=== PATIENT | female | born 1960 | race Caucasian/White ===

== ENCOUNTER 2016-12-16 07:31 | Inpatient (IN) ==
[2016-12-16 07:56] LABS: Basophils % 0.2 %; Eosinophils # 0.1 K/mcL (0.0-0.6); Hematocrit 38.7 % (35.3-44.9); Hemoglobin 12.8 g/dL (11.5-15.4); Immature Granulocytes % 0.2 % (0-4); Lymphocytes # 2.9 K/mcL (0.6-4.6); Lymphocytes % 23.2 %; Mean Corpuscular HGB Conc 33.1 g/dL (31.6-35.5); Mean Corpuscular Hemoglobin 30.4 pg (28.0-33.3); Mean Corpuscular Volume 91.9 fL (83.0-100.0); Mean Platelet Volume 10.6 fL (9.4-12.4); Monocytes # 0.4 K/mcL (0.0-1.3); Platelet Count 158 K/mcL (140-400); Red Blood Count 4.21 M/mcL (3.82-4.97); Red Cell Distribution Width 15.1 % (11.5-14.5); Segmented Neutrophils % 72.4 %
[2016-12-16 08:11] LABS: Alanine Aminotransferase 27 Units/L (0-55); Albumin 3.3 g/dL (3.5-5.0); Alkaline Phosphatase 110 Units/L (38-126); Aspartate Amino Transferase 33 Units/L (5-34); BUN/Creatinine Ratio 13 (6-26); Bilirubin,Total 0.5 mg/dL (0.2-1.2); Blood Urea Nitrogen 11 mg/dL (7-20); Calcium 9.2 mg/dL (8.6-10.8); Carbon Dioxide 24 mEq/L (19-29); Chloride 108 mEq/L (98-109); Glucose 125 mg/dL (70-99); Osmolality,Calculated 293 (280-300); Potassium 3.2 mEq/L (3.5-4.5); Sodium 141 mEq/L (136-145); Total Protein 7.7 g/dL (6.0-8.3); eGFR For African Americans > 60 (> 60); eGFR For Non-African Americans > 60 (> 60)
[2016-12-16 08:12] LABS: Albumin/Globulin Ratio 0.8 (1.1-2.2); Globulin 4.4 g/dL (2.4-3.5)
[2016-12-16 08:12] LABS: Bilirubin,Urine Negative (Negative); Blood,Urine Negative (Negative); Clarity,Urine Cloudy (Clear); Color,Urine Yellow (Yellow); Glucose,Urine (UA) Normal (Normal); Ketones,Urine Negative (Negative); Leukocyte Esterase,Urine Small (Negative); Nitrite,Urine Positive (Negative); Protein,Urine Negative (Neg-Trace); Specific Gravity,Urine 1.018 (1.010-1.025); Urobilinogen,Urine Normal (Normal)
[2016-12-16 08:14] LABS: Bacteria,Urine Many per hpf (None-Few); Hyaline Casts,Urine None Seen per lpf (None-Few); RBC,Urine 0-3 per hpf (0-3); Squamous Epithelial Cell,Urine Moderate per lpf (None-Few)
[2016-12-16 08:23] LABS: Amphetamine Screen,Urine Negative ng/mL (Cutoff=1000); Barbiturate Screen,Urine Negative ng/mL (Cutoff=200); Benzodiazepines Screen,Urine Negative ng/mL (Cutoff=200); Cannabinoid Screen,Urine Negative ng/mL (Cutoff = 50); Cocaine Screen,Urine Positive ng/mL (Cutoff= 300); Opiate Screen,Urine Negative ng/mL (Cutoff=300); Phencyclidine Screen,Urine Negative ng/mL (Cutoff=25)
[2016-12-16] MEDS ORDERED: Azithromycin 500 MG in D5% in Water 250 ML IVPB ONE (10:49)
[2016-12-16] MEDS ORDERED: hydrOXYzine pamoate 25 MG CAPSULE PO PRN (13:58)
[2016-12-16] MEDS ORDERED: Naloxone 0.4 MG/ML INJ IVP PRN (14:02)
[2016-12-16] MEDS ORDERED: Acetaminophen 325 MG TABLET PO PRN (14:02)
--- NOTE | 2016-12-16 14:23 | Internal Med History&Physical ---
Date of Encounter: 12/16/16 Time of Encounter: 14:14 Assessment and Plan (1) Near syncope Current visit: Yes Status: Acute Patient reports a near syncopal event which began this morning. Reporting that she felt dizzy, had blurred vision, and began to blackout, but her sister was there to help her to the floor. Plan is continue to workup and monitor for neurogenic versus cardiogenic syncope. Continuous telemetry Continuous SPO2 monitoring Every 4 hours vital signs Orthostatic vital signs Place patient on fall risk status Up with assist only Trend troponins to rule out cardiogenic cause Neuro check every shift Falls risk precautions Up with assist only CT of head was negative; we will continue to monitor for neurologic changes Blood cultures sent in the emergency department. CBC and BMP in the a.m. (2) Pneumonia Current visit: Yes Status: Acute CTA of chest reveals nodular ground glass infiltrates likely due to infection. The pneumonia may be contributory to the near syncopal event. Continuous SPO2 monitoring Continue his telemetry Oxygen therapy 2 L nasal cannula titrate as needed to maintain SPO2 greater than 92% Continue azithromycin. Patient has already received 500 mg dose today. We will continue azithromycin in the morning with 250 mg daily. De-escalate antibiotic therapy is appropriate. Qualifiers: Pneumonia type: due to unspecified organism Laterality: bilateral Lung location: lower lobe of lung Qualified Code(s): J18.9 - Pneumonia, unspecified organism (3) UTI (urinary tract infection) Current visit: Yes Status: Acute Acute urinary tract infection. Patient had a UA positive for nitrates and small amount of leukocytes. Plan is continue Rocephin 1 g every 24 hours. She is very received 1 g today in the emergency department will continue with Rocephin in the morning. Urine cultures are sent in the emergency department. Qualifiers: Urinary tract infection type: site unspecified Hematuria presence: without hematuria Qualified Code(s): N39.0 - Urinary tract infection, site not specified (4) Hypokalemia Current visit: Yes Status: Acute Hypokalemia noted on metabolic panel with a potassium of 3.2. Plan is to replace potassium with 40 mEq potassium chloride 1 dose. We will check BMP in the morning (5) DVT prophylaxis Current visit: Yes Status: Acute Patient is a risk for DVT due to hospital stay and prolonged immobility. We will place her on Lovenox 40 mg subcutaneous daily. Internal Medicine - H&P: HPI Chief complaint: near syncope Admitted From: Home Plans for Post Hospital Care: Home History of present illness: Ms. 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 She is presenting to [facility] with a near syncopal episode this morning. All information obtained from chart review and patient report. She reports as recently as last week to having a similar near syncopal event but the dizziness did not last as long and the vision changes were not as bad as this morning. Patient reports that as of this morning she was feeling dizzy, and while attempting to get dressed she felt worse, having dizziness, vision changes and almost blacking out. She then walked out into the living area to her sister who then helped her down to the floor d/t her symptoms. The dizziness and vision are reported as ongoing and intermittent, aggravating factors include activity, and focusing on distant objects; gets temporary relief when closing her eyes. She denies taking any new medications, supplements, or herbals. She denies fever, rashes, fatigued, chest pain, shortness of breath, palpitations, nausea, vomiting. She admits to having diarrhea 48 hours ago for 1 day total additionally she admits to dizziness, vision changes, and a headache shortly after syncopal event which has now subsided. While in the emergency department a CT of the head was obtained revealing no acute intracranial abnormalities; however, did show chronic small vessel ischemic changes. CTA of the chest revealed no PE, however, did reveal nodular groundglass infiltrates which is likely infection. Urine drug screen was positive for cocaine and urinalysis was positive for nitrites and small amount of leuks. CBC revealed an elevated WBC of 12.4 and metabolic panel revealed hypokalemia at 3.2. The pneumonia revealed via CTA and cocaine in the UDS could likely be contributory to the near syncopal event. She is being admitted to [facility] for further workup and evaluation. Past Med Surg Social Fam HX - Past Medical History Medical history: arthritis, asthma Psychiatric history: anxiety, depression, panic disorder, prior suicide attempt - Past Surgical History Surgical History: , cholecystectomy, knee replacement, orthopedic, other - Social History Smoking Status: Current every day smoker Packs per day: 1/2 Smokeless Tobacco Status: No Alcohol use: none Drug use: cocaine - Family History Father Race: Family Member Ethnicity: Non- Living Status: Cause of : [place] Hx Family Cardiac Disorders: Yes Mother Race: Family Member Ethnicity: Non- Living Status: Cause of : unknown Hx Family Cardiac Disorders: Yes Hx Family Cancer: Yes Brother Race: Family Member Ethnicity: Non- Hx Family Cardiac Disorders: Yes (CAD) Hx Family Endocrine Disorder: Yes (DM II) Internal Medicine - H&P: Meds Albuterol Sulfate [Ventolin Hfa] 2 puff IH Q4H PRN 12/16/16 [History] Citalopram Hydrobromide [Celexa] 40 mg PO DAILY 12/16/16 [History] Gabapentin [Neurontin] 300 mg PO TID 12/16/16 [History] Multivit-Min/FA/Lycopen/Lutein [A Thru Z Select Multivit Tab] 1 tab PO DAILY 08/27 [History] OxyCODONE/APAP 7.5/325 [Percocet 7.5/325 MG] 1 tab PO Q8HR PRN 12/16/16 [History ] hydrOXYzine HCl [Hydroxyzine HCl] 50 mg PO Q8H PRN 12/16/16 [History] 3 Allergy/AdvReac Type Severity Reaction Status Date / Time aspirin Allergy Rash Verified 03/30/15 18:54 latex Allergy Rash Verified 03/30/15 18:54 All Systems PM: A 10-system review of systems was performed and is negative for pertinent findings except as documented above in the HPI. - Constitutional Constitutional: no chills, no fever(s), no night sweats - EENT Eyes: blurry vision, change in vision (Admits to new blurred vision which began this morning and is ongoing), no discharge, no loss of peripheral vision, no loss of vision, no pain, no photophobia Ears: no ear discharge, no ear pain, no tinnitus Nose, mouth and throat: no dysphagia, no nasal discharge, no neck pain, no sore throat - Cardiovascular Cardiovascular ROS IM: no chest pain, no diaphoresis, no dyspnea, no edema, no lightheadedness, no palpitations, no syncope - Respiratory Respiratory: no cough, no dyspnea, no wheezing, no excessive phlegm production - Gastrointestinal Gastrointestinal: no abdominal pain, no diarrhea, no hematemesis, no hematochezia, no melena, no nausea, no vomiting - Genitourinary Genitourinary: no change in urinary stream, no dysuria, no flank pain, no hematuria - Musculoskeletal Musculoskeletal ROS IM: numbness, tingling (Chronic numbness and tingling bilateral hands; reports carpal tunnel) - Integumentary Integumentary IM: no rash, no unusual bruising - Neurological Neurological ROS: dizziness, headache(s) (Admits to headache which began this morning shortly after near syncopal event, however, reports that she no longer has), no abnormal gait, no confusion, no convulsions, no focal weakness, no frequent falls, no lack of coordination, no memory loss, no numbness, no tremor( s) - Hematologic/Lymphatic Hematologic/Lymphatic: no easy bruising - Constitutional Vitals: Temp Pulse Resp BP Pulse Ox 98.8 F 86 18 109/54 93 12/16/16 13:13 12/16/16 13:13 12/16/16 13:13 12/16/16 13:13 12/16/16 13:13 General appearance: Present: cooperative, A&O X 3, no acute distress - Head Head exam: Present: atraumatic, normocephalic - Eye Eye exam: Present: EOMI, PERRL, conjuntiva pink, sclera anicteric Pupils: Present: PERRL - Neck Neck exam general surgery: Present: supple, trachea midline. Absent: lymphadenopathy - Respiratory Respiratory exam: Present: CTAB. Absent: accessory muscle use, rales, rhonchi, wheezes - Cardiovascular Cardiovascular exam: Present: RRR, +S1, +S2. Absent: bradycardia, diastolic murmur, gallop, irregular rhythm, rubs, systolic murmur, tachycardia - GI/Abdominal GI/Abdominal exam: Present: normal bowel sounds, soft, no peritoneal signs. Absent: bruit, distended, tenderness - Extremities Exam Extremities exam: Present: warm, radial pulses palpable and symmetrical. Absent : calf tenderness, cyanotic, pedal edema - Expanded Upper Extremities Exam Shoulder exam: Absent: full ROM, swelling, tenderness Upper Arm exam: Absent: full ROM, swelling, tenderness (Patient is a decrease in ROM of right shoulder and arm. She notes that this is chronic and has been ongoing for the last year and a half. She had a prior infection in the right shoulder joint and right arm requiring prolonged antibiotic therapy and I&D. She informed this provider that she has had these limitations with her right arm and right shoulder since then.) - Neurological Exam Neurological exam: Present: CN II-XII intact, oriented X3, no focal deficits. Absent: pronater drift, facial droop, speech deficit - Skin Skin exam: Present: dry, intact Internal Med - H&P Results - Labs CBC & Chem 7: 12/16/16 07:49 12/16/16 07:49 - Diagnostic Studies CT scan - head Additional comments: Negative for acute intracranial abnormalities; however, did reveal chronic small vessel ischemic changes Chest x-ray Additional comments: Negative for PE. However, revealed nodular ground glass infiltrates likely due to infection
[2016-12-16] MEDS: Gabapentin 300 MG CAPSULE PO SCH ×2 (14:50→19:53)
[2016-12-16] MEDS ORDERED: Azithromycin 250 MG in D5% in Water 250 ML IVPB SCH (15:00)
--- NOTE | 2016-12-16 19:00 | Emergency Department Note ---
Disposition Clinical Impression: Pneumonia Qualifiers: Pneumonia type: due to unspecified organism Laterality: bilateral Lung location : lower lobe of lung Qualified Code(s): J18.9 - Pneumonia, unspecified organism Disposition: Admitted As Inpatient General Adult HPI - General Chief complaint: ED Dizziness Stated complaint: Dizzy/Near Syncope Time Seen by Provider: 12/16/16 07:35 Source: patient, EMS Limitations: no limitations Nursing Notes Reviewed: Yes Vital Signs Reviewed: Yes - History of Present Illness HPI Narrative: 48-year-old female who presents with concern for dizziness as well as syncope. She admits to passing out today after feeling quite fine when she woke up. She has no fever or chills. She has no sick or ill contacts. She has no weakness before or after syncope. Pain Scale: 0 - Related Data Home Medications Medication Instructions Recorded Confirmed Albuterol Sulfate [Ventolin Hfa] 2 puff IH Q4H PRN 12/16/16 12/16/16 Citalopram Hydrobromide [Celexa] 40 mg PO DAILY 12/16/16 12/16/16 Gabapentin [Neurontin] 300 mg PO TID 12/16/16 12/16/16 Multivit-Min/FA/Lycopen/Lutein [A 1 tab PO DAILY 12/16/16 12/16/16 Thru Z Select Multivit Tab] OxyCODONE/APAP 7.5/325 [Percocet 1 tab PO Q8HR PRN 12/16/16 12/16/16 7.5/325 MG] hydrOXYzine HCl [Hydroxyzine HCl] 50 mg PO Q8H PRN 12/16/16 12/16/16 Allergies Allergy/AdvReac Type Severity Reaction Status Date / Time aspirin Allergy Rash Verified 03/30/15 18:54 latex Allergy Rash Verified 03/30/15 18:54 All systems ED: reviewed and negative except as stated. Past Medical History - Past Medical History Medical history: Reports: arthritis, asthma Surgical history: Reports: , cholecystectomy, knee replacement, orthopedic, other Psychiatric history: Reports: anxiety, depression, panic disorder, prior suicide attempt - Social History Smoking Status: Current every day smoker Smokeless Tobacco Status: No Alcohol use: Reports: none Drug use: Reports: cocaine Physical Exam - General Limitations: no limitations General appearance: alert, in no apparent distress - Head Head exam: atraumatic - Eye Eye exam: Present: normal appearance - ENT ENT exam: normal exam, normal oropharynx - Neck Neck exam: Present: normal inspection, full ROM - Chest Chest inspection: Present: normal inspection - Respiratory Respiratory exam: Present: normal lung sounds bilaterally - Cardiovascular Cardiovascular exam: Present: regular rate, normal rhythm - Expanded Lower Extremity Exam Hip/Pelvis exam: Present: normal inspection Knee exam: Present: normal inspection, full ROM Lower leg exam: Present: normal inspection, full ROM Ankle exam: Present: normal inspection, full ROM Foot/toe exam: Present: normal inspection, full ROM Neurovascular/Tendon exam: Present: normal capillary refill. Absent: pulse deficit Gait: observed and normal, not tested/not observed - Back Exam Back exam: Present: normal inspection, full ROM - Neurological Exam Neurological exam: Present: alert, oriented X3, CN II-XII intact Course Vital Signs Temperature 98 F 12/16/16 07:33 Pulse Rate 80 12/16/16 07:33 Respiratory Rate 20 12/16/16 07:33 Blood Pressure 121/52 12/16/16 07:33 O2 Sat by Pulse Oximetry 96 12/16/16 07:33 Temperature 98.6 F 12/16/16 15:30 Pulse Rate 86 12/16/16 15:30 Respiratory Rate 15 12/16/16 15:30 Blood Pressure 113/67 12/16/16 15:30 O2 Sat by Pulse Oximetry 95 12/16/16 16:51 Oxygen Delivery Oxygen Delivery Room Air Medical Decision Making - [facility] Narrative Medical decision making narrative: 56-year-old female with findings of syncope, urinary tract infection, pneumonia. Also has evidence of cocaine positive urine. We will admit for evaluation of microvascular changes as well as pneumonia as well as urinary tract infection. Ceftriaxone and azithromycin initiated. - Medical Records Medical records reviewed: Yes I reviewed the patient's medical records. - Lab Data Lab results reviewed: Yes I reviewed the patient's lab results. Result diagrams: 12/16/16 07:49 12/16/16 07:49 Lab Results 12/16/16 12/16/16 12/16/16 Range/Units 07:49 07:49 07:49 WBC 12.4 H (4.3-11.1) K/mcL RBC 4.21 (3.82-4.97) M/mcL Hgb 12.8 (11.5-15.4) g/dL Hct 38.7 (35.3-44.9) % MCV 91.9 (83.0-100.0) fL MCH 30.4 (28.0-33.3) pg MCHC 33.1 (31.6-35.5) g/dL RDW 15.1 H (11.5-14.5) % Plt Count 158 (140-400) K/mcL MPV 10.6 (9.4-12.4) fL Immature Gran % 0.2 (0-4) % Seg Neutrophils % 72.4 % Lymphocytes % 23.2 % Monocytes % 3.0 % Eosinophils % 1.0 % Basophils % 0.2 % Neutrophils # 9.0 H (1.6-8.9) K/mcL Lymphocytes # 2.9 (0.6-4.6) K/mcL Monocytes # 0.4 (0.0-1.3) K/mcL Eosinophils # 0.1 (0.0-0.6) K/mcL Basophils # 0.0 (0.0-0.2) K/mcL Sodium 141 (136-145) mEq/L Potassium 3.2 L (3.5-4.5) mEq/L Chloride 108 (98-109) mEq/L Carbon Dioxide 24 (19-29) mEq/L BUN 11 (7-20) mg/dL Creatinine 0.87 (0.57-1.11) mg/dL Est GFR ( Amer) > 60 (> 60) Est GFR (Non-Af Amer) > 60 (> 60) BUN/Creatinine Ratio 13 (6-26) Glucose 125 H (70-99) mg/dL Calculated Osmolality 293 (280-300) Calcium 9.2 (8.6-10.8) mg/dL Total Bilirubin 0.5 (0.2-1.2) mg/dL AST 33 (5-34) Units/L ALT 27 (0-55) Units/L Alkaline Phosphatase 110 (38-126) Units/L Troponin I 0.01 (0-0.03) ng/mL Serum Total Protein 7.7 (6.0-8.3) g/dL Albumin 3.3 L (3.5-5.0) g/dL Globulin 4.4 H (2.4-3.5) g/dL Albumin/Globulin Ratio 0.8 L (1.1-2.2) Urine Color (Yellow) Urine Clarity (Clear) Urine pH (5.0-8.0) pH Units Ur Specific [place] (1.010-1.025) Urine Protein (Neg-Trace) mg/dL Urine Glucose (UA) (Normal) mg/dL Urine Ketones (Negative) mg/dL Urine Blood (Negative) Urine Nitrite (Negative) Urine Bilirubin (Negative) Urine Urobilinogen (Normal) mg/dL Ur Leukocyte Esterase (Negative) Urine Microscopic RBC (0-3) per hpf Urine Microscopic WBC (0-3) per hpf Ur Squamous Epith Cells (None-Few) per lpf Urine Bacteria (None-Few) per hpf Hyaline Casts (None-Few) per lpf Ur Culture Indicated? (NO) Urine Opiates Screen (Xuzapj=424) ng/mL Ur Barbiturates Screen (Zxfajr=995) ng/mL Ur Phencyclidine Scrn (Cutoff=25) ng/mL Ur Amphetamines Screen (Ecqxev=9459) ng/mL U Benzodiazepines Scrn (Jjayjq=795) ng/mL Urine Cocaine Screen (Cutoff= 300) ng/mL U Marijuana (THC) Screen (Cutoff = 50) ng/mL 12/16/16 12/16/16 Range/Units 08:00 08:00 WBC (4.3-11.1) K/mcL RBC (3.82-4.97) M/mcL Hgb (11.5-15.4) g/dL Hct (35.3-44.9) % MCV (83.0-100.0) fL MCH (28.0-33.3) pg MCHC (31.6-35.5) g/dL RDW (11.5-14.5) % Plt Count (140-400) K/mcL MPV (9.4-12.4) fL Immature Gran % (0-4) % Seg Neutrophils % % Lymphocytes % % Monocytes % % Eosinophils % % Basophils % % Neutrophils # (1.6-8.9) K/mcL Lymphocytes # (0.6-4.6) K/mcL Monocytes # (0.0-1.3) K/mcL Eosinophils # (0.0-0.6) K/mcL Basophils # (0.0-0.2) K/mcL Sodium (136-145) mEq/L Potassium (3.5-4.5) mEq/L Chloride (98-109) mEq/L Carbon Dioxide (19-29) mEq/L BUN (7-20) mg/dL Creatinine (0.57-1.11) mg/dL Est GFR ( Amer) (> 60) Est GFR (Non-Af Amer) (> 60) BUN/Creatinine Ratio (6-26) Glucose (70-99) mg/dL Calculated Osmolality (280-300) Calcium (8.6-10.8) mg/dL Total Bilirubin (0.2-1.2) mg/dL AST (5-34) Units/L ALT (0-55) Units/L Alkaline Phosphatase (38-126) Units/L Troponin I (0-0.03) ng/mL Serum Total Protein (6.0-8.3) g/dL Albumin (3.5-5.0) g/dL Globulin (2.4-3.5) g/dL Albumin/Globulin Ratio (1.1-2.2) Urine Color Yellow (Yellow) Urine Clarity Cloudy A (Clear) Urine pH 6.0 (5.0-8.0) pH Units Ur Specific [place] 1.018 (1.010-1.025) Urine Protein Negative (Neg-Trace) mg/dL Urine Glucose (UA) Normal (Normal) mg/dL Urine Ketones Negative (Negative) mg/dL Urine Blood Negative (Negative) Urine Nitrite Positive A (Negative) Urine Bilirubin Negative (Negative) Urine Urobilinogen Normal (Normal) mg/dL Ur Leukocyte Esterase Small H (Negative) Urine Microscopic RBC 0-3 (0-3) per hpf Urine Microscopic WBC 5-15 H (0-3) per hpf Ur Squamous Epith Cells Moderate H (None-Few) per lpf Urine Bacteria Many H (None-Few) per hpf Hyaline Casts None Seen (None-Few) per lpf Ur Culture Indicated? YES A (NO) Urine Opiates Screen Negative (Gkuwwz=811) ng/mL Ur Barbiturates Screen Negative (Maqzuw=907) ng/mL Ur Phencyclidine Scrn Negative (Cutoff=25) ng/mL Ur Amphetamines Screen Negative (Imewze=1049) ng/mL U Benzodiazepines Scrn Negative (Pgglwy=281) ng/mL Urine Cocaine Screen Positive H (Cutoff= 300) ng/mL U Marijuana (THC) Screen Negative (Cutoff = 50) ng/mL
[2016-12-17] MEDS: *HR* Enoxaparin 40 MG/0.4 ML SYRINGE SQ SCH (05:17)
[2016-12-17 06:03] LABS: Basophils % 0.3 %; Eosinophils # 0.2 K/mcL (0.0-0.6); Eosinophils % 1.2 %; Hematocrit 32.8 % (35.3-44.9); Immature Granulocytes % 0.3 % (0-4); Lymphocytes # 3.3 K/mcL (0.6-4.6); Lymphocytes % 22.9 %; Mean Corpuscular HGB Conc 33.2 g/dL (31.6-35.5); Mean Corpuscular Hemoglobin 29.8 pg (28.0-33.3); Mean Corpuscular Volume 89.6 fL (83.0-100.0); Mean Platelet Volume 11.1 fL (9.4-12.4); Monocytes # 0.7 K/mcL (0.0-1.3); Monocytes % 4.7 %; Neutrophils # 10.3 K/mcL (1.6-8.9); Platelet Count 155 K/mcL (140-400); Red Blood Count 3.66 M/mcL (3.82-4.97); Red Cell Distribution Width 15.2 % (11.5-14.5); Segmented Neutrophils % 70.6 %
[2016-12-17 06:05] LABS: Hemoglobin 10.9 g/dL (11.5-15.4)
[2016-12-17 06:17] LABS: BUN/Creatinine Ratio 18 (6-26); Blood Urea Nitrogen 13 mg/dL (7-20); Carbon Dioxide 24 mEq/L (19-29); Chloride 109 mEq/L (98-109); Glucose 99 mg/dL (70-99); Osmolality,Calculated 286 (280-300); Potassium 3.8 mEq/L (3.5-4.5); Sodium 138 mEq/L (136-145); eGFR For African Americans > 60 (> 60); eGFR For Non-African Americans > 60 (> 60)
[2016-12-17] MEDS: Multivit/Ca/Min/Fe/FA 1 TAB TABLET PO SCH (08:50)
[2016-12-17] MEDS: Gabapentin 300 MG CAPSULE PO SCH ×3 (08:50→20:13)
[2016-12-17] MEDS ORDERED: Azithromycin 250 MG in D5% in Water 250 ML IVPB SCH (11:30)
--- NOTE | 2016-12-17 14:23 | Internal Med Progress Note ---
Date of Encounter: 12/17/16 Time of Encounter: 10:00 - Assessment and plan (1) Near syncope Current Visit: Yes Status: Acute Assessment and plan: Likely multi-factorial. Imaging consistent with bilateral lower lobe pneumonia and she also has a urinary tract infection. Treating with azithromycin and ceftriaxone. She is tolerating a regular diet. Vital signs are stable. (2) Pneumonia Current Visit: Yes Status: Acute Assessment and plan: Imaging consistent with bilateral lower lobe pneumonia. On examination, patient denies shortness of breath and is tolerating room air. Unclear causation. No recent admissions. Treating with azithromycin and ceftriaxone. Vital signs are stable. ITS Impressions Chest CTA 12/16/16 07:36 IMPRESSION: 1. No pulmonary embolism. 2. Nodular ground-glass infiltrates within the bilateral lower lobes, most likely infectious or inflammatory in etiology. Follow-up chest CT in 3- 6 months is recommended to document resolution. D/ / Michele García MD / Michele García MD Interpreting Provider: Michele García MD (3) UTI (urinary tract infection) Current Visit: Yes Status: Acute Assessment and plan: Initial urine culture consistent with gram-negative rods. Good coverage with ceftriaxone. Awaiting sensitivities. Patient denies dysuria but does complain of diffuse generalized abdominal pain. Qualifiers: Urinary tract infection type: site unspecified Hematuria presence: without hematuria Qualified Code(s): N39.0 - Urinary tract infection, site not specified (4) Abdominal pain Current Visit: No Status: Acute Assessment and plan: On examination, patient's abdomen is distended but soft and diffusely tender. Patient stating she is very gassy. She states she had a normal bowel movement last night. Tolerating a regular diet. LFTs unremarkable. We will continue to trend. If pain persists, will consider abdominal imaging but not indicated at this time. (5) Anemia Current Visit: No Status: Chronic Assessment and plan: Currently at the high end of her normal. We will continue to trend. Initial readings normal suggestive of hemoconcentration upon arrival. No signs of active bleeding. (6) Hypokalemia Current Visit: Yes Status: Resolved (7) Cocaine abuse Current Visit: Yes Status: Chronic Assessment and plan: Tox screen positive for cocaine. Patient stating she has been using cocaine for several years. She is not interested in resources or in stopping. (8) DVT prophylaxis Current Visit: Yes Status: Acute Assessment and plan: Subcutaneous Lovenox - Subjective Interval history: Patient seen and examined. On examination, patient initially asleep and awakened easily to voice. She states she was able to eat her breakfast. She denies pain or shortness of breath at this time. - Constitutional Vitals: Temp Pulse Resp BP Pulse Ox 98.0 F 67 16 126/73 96 12/17/16 10:45 12/17/16 10:45 12/17/16 10:45 12/17/16 10:45 12/17/16 10:45 General appearance: Present: cooperative, A&O X 3, pleasant, no acute distress, answers questions appropriately - Head Head exam: Present: atraumatic, normocephalic - Eye Eye exam: Present: PERRL, conjuntiva pink, sclera anicteric Pupils: Present: PERRL - Neck Neck exam general surgery: Present: supple, trachea midline. Absent: lymphadenopathy - Respiratory Respiratory exam: Present: decreased breath sounds. Absent: accessory muscle use, rales, respiratory distress, rhonchi, wheezes - Cardiovascular Cardiovascular exam: Present: RRR, +S1, +S2. Absent: diastolic murmur, gallop, rubs, systolic murmur - GI/Abdominal GI/Abdominal exam: Present: distended, normal bowel sounds, soft, tenderness ( Diffuse), no peritoneal signs - Extremities Exam Extremities exam: Present: warm, radial pulses palpable and symmetrical. Absent : calf tenderness, cyanotic, pedal edema - Neurological Exam Neurological exam: Present: alert, CN II-XII intact, oriented X3, no focal deficits, strengths equal and symetr throughout. Absent: pronater drift, facial droop, speech deficit - Skin Skin exam: Present: dry, intact, pallor, warm Internal Medicine: Result - Labs CBC & Chem 7: 12/17/16 04:52 12/17/16 04:52 Labs: Short CBC 12/17/16 Range/Units 04:52 WBC 14.6 H (4.3-11.1) K/mcL Hgb 10.9 L D (11.5-15.4) g/dL Hct 32.8 L (35.3-44.9) % Plt Count 155 (140-400) K/mcL Neutrophils # 10.3 H (1.6-8.9) K/mcL BMP 12/17/16 04:52 Sodium 138 Potassium 3.8 Chloride 109 Carbon Dioxide 24 BUN 13 Creatinine 0.74 Glucose 99 Calcium 9.0 Cardiac Enzymes 12/16/16 12/16/16 Range/Units 14:24 19:18 Troponin I 0.00 0.02 (0-0.03) ng/mL Consult Discharge Plan - Plan Referrals: Chinmay Eastman MD [Primary Care Provider] -
[2016-12-17] MEDS ORDERED: *HR* OxyCODONE/APAP 7.5/325 TABLET PO PRN (14:28)
--- NOTE | 2016-12-17 15:01 | Electrocardiograph Report ---
[place] [id number] Test Date: 2016-12-16 Pat Name: Kristen Benitez Department: 113 Room: 3B12 Gender: F Biomedical Specialist: : [id number] Requested By: Glenn Garza Order Number: [id number] Reading MD: Tiffanie Gomez Measurements Intervals [place] Rate: 77 P: 24 [place]: 147 QRS: 40 QRSD: 82 T: 39 QT: 450 QTc: 481 Interpretive Statements SINUS RHYTHM PROLONGED QT INTERVAL Electronically Signed On 12-17-2016 14:59:32 EDT by Tiffanie Gomez
[2016-12-18 05:02] LABS: Basophils % 0.4 %; Eosinophils # 0.3 K/mcL (0.0-0.6); Eosinophils % 2.8 %; Hematocrit 36.3 % (35.3-44.9); Hemoglobin 11.9 g/dL (11.5-15.4); Immature Granulocytes % 0.3 % (0-4); Lymphocytes # 3.3 K/mcL (0.6-4.6); Lymphocytes % 35.4 %; Mean Corpuscular HGB Conc 32.8 g/dL (31.6-35.5); Mean Corpuscular Hemoglobin 29.9 pg (28.0-33.3); Mean Corpuscular Volume 91.2 fL (83.0-100.0); Mean Platelet Volume 11.8 fL (9.4-12.4); Monocytes # 0.6 K/mcL (0.0-1.3); Monocytes % 6.8 %; Platelet Count 157 K/mcL (140-400); Red Blood Count 3.98 M/mcL (3.82-4.97); Red Cell Distribution Width 15.4 % (11.5-14.5); Segmented Neutrophils % 54.3 %
[2016-12-18 05:15] LABS: BUN/Creatinine Ratio 15 (6-26); Blood Urea Nitrogen 11 mg/dL (7-20); Calcium 9.4 mg/dL (8.6-10.8); Carbon Dioxide 23 mEq/L (19-29); Chloride 106 mEq/L (98-109); Glucose 90 mg/dL (70-99); Osmolality,Calculated 285 (280-300); Potassium 4.3 mEq/L (3.5-4.5); Sodium 138 mEq/L (136-145); eGFR For African Americans > 60 (> 60); eGFR For Non-African Americans > 60 (> 60)
[2016-12-18] MEDS: *HR* Enoxaparin 40 MG/0.4 ML SYRINGE SQ SCH (05:35)
[2016-12-18] MEDS: Gabapentin 300 MG CAPSULE PO SCH (08:02)
[2016-12-18] MEDS: Multivit/Ca/Min/Fe/FA 1 TAB TABLET PO SCH (08:02)
[2016-12-18 11:15] VITALS: BP 130/76
--- NOTE | 2016-12-18 12:19 | Discharge Summary ---
Date of Encounter: 12/18/16 Time of Encounter: 09:30 - Discharge Diagnosis (1) Near syncope Priority: Primary Status: Acute Comments: Likely multi-factorial. Imaging consistent with bilateral lower lobe pneumonia and she also has a urinary tract infection. Treated with azithromycin and ceftriaxone while admitted. She is tolerating a regular diet. Vital signs are stable. On room air while admitted (2) Escherichia coli urinary tract infection Priority: Primary Status: Acute (3) Pneumonia Priority: Primary Status: Acute Comments: Patient denied shortness of breath above her norm on day of discharge. Unknown etiology. Treated with azithromycin and ceftriaxone while admitted. Will send home on levofloxacin to cover both community-acquired pneumonia as well as her urinary tract infection (4) UTI (urinary tract infection) Priority: Primary Status: Acute Comments: Escherichia coli pansensitive except for resistance to ampicillin. Treated appropriately with ceftriaxone while admitted, will send home on levofloxacin for double coverage for pneumonia. Qualifiers: Urinary tract infection type: site unspecified Hematuria presence: without hematuria Qualified Code(s): N39.0 - Urinary tract infection, site not specified (5) Abdominal pain Priority: Primary Status: Resolved (6) Hypokalemia Priority: Primary Status: Resolved (7) Cocaine abuse Priority: Secondary Status: Chronic Comments: Tox screen positive for cocaine. Patient stating she has been using cocaine for several years. She is not interested in resources or in stopping. (8) DVT prophylaxis Priority: Primary Status: Acute Comments: Subcutaneous Lovenox while admitted - Discharge Medications Prescriptions: levoFLOXacin [Levofloxacin] 750 mg PO DAILY #5 tablet Home Medications: Albuterol Sulfate [Ventolin Hfa] 2 puff IH Q4H PRN 12/16/16 [History] Citalopram Hydrobromide [Celexa] 40 mg PO DAILY 12/16/16 [History] Gabapentin [Neurontin] 300 mg PO TID 12/16/16 [History] Multivit-Min/FA/Lycopen/Lutein [A Thru Z Select Multivit Tab] 1 tab PO DAILY 08/27 [History] OxyCODONE/APAP 7.5/325 [Percocet 7.5/325 MG] 1 tab PO Q8HR PRN 12/16/16 [History ] hydrOXYzine HCl [Hydroxyzine HCl] 50 mg PO Q8H PRN 12/16/16 [History] levoFLOXacin [Levofloxacin] 750 mg PO DAILY #5 tablet 12/18/16 [Rx] Allergies/Adverse Reactions: 3 Allergy/AdvReac Type Severity Reaction Status Date / Time aspirin Allergy Rash Verified 03/30/15 18:54 latex Allergy Rash Verified 03/30/15 18:54 Date of admission: 12/17/16 14:31 Primary care physician: Chinmay Eastman MD Discharging clinician: Radha England Anticipated date of discharge: 12/18/16 - Patient Status Disposition: Home, Self-Care Condition: Fair Functional capacity at discharge: independent ambulation Overall status at discharge: patient is back to baseline - Discharge Instructions Follow Up With: Chinmay Eastman MD [Primary Care Provider] - Forms: ED Satisfaction Letter Additional Instructions: Follow-up with primary care provider within one to 2 weeks - Diet and Activity Activity: increase activity as tolerated Diet: regular diet Hospital course: Ms. Benitez is a 56 year old female with past medical history of asthma, tobacco abuse, hypertension, hyperlipidemia, anxiety/depression, panic disorder, prior suicide attempt, cocaine abuse. Patient presented to the emergency department chief complaint of a near syncopal episode on the morning of presentation. Patient stating over the past week prior to presentation that she had similar near syncopal events but her dizziness did not last as long as the episode in the morning which prompted her presentation. Patient also endorsed vision changes with this presenting episode that were worse than prior episodes. Patient stating she was attempting to get dressed when she felt worse, she started to experience dizziness, vision changes and states that she almost blacked out. She states that she then walked out to her living area where her sister was located in her sister helped her lay down to the floor. No syncope. Patient denied taking any new medications or drugs. Patient stating her dizziness and vision are reported as ongoing and intermittent and aggravated with activity and focusing on distant objects. Patient has temporary relief when she closes her eyes. Patient also admits to diarrhea 48 hours prior to presentation which had subsided prior to arrival. Workup in the emergency department unremarkable other than her tox screen was positive for cocaine. Mild hypokalemia also noted. CTA ruled out a PE however did reveal bilateral lower lobe pneumonia. Head CT negative for acute processes. Patient was admitted to the hospitalist service for further evaluation and management. She was treated with azithromycin and ceftriaxone while admitted. She was also found to have a urinary tract infection that was pansensitive Escherichia coli. She was able to tolerate a regular diet while admitted. She was also asymptomatic on day of discharge. She was ambulatory without dizziness or vision changes. She had no gait abnormalities. Likely cause dehydration, cocaine abuse, pneumonia, and urinary tract infection. Her vital signs remained stable during this admission and she was tolerating room air the entire time she was admitted. She endorsed regular cocaine usage and did not want to discuss cessation. She was sent home on levofloxacin to double cover for urinary tract infection and her pneumonia. She is discharged home in stable condition with close outpatient follow-up recommended. ITS Impressions Chest CTA 12/16/16 07:36 IMPRESSION: 1. No pulmonary embolism. 2. Nodular ground-glass infiltrates within the bilateral lower lobes, most likely infectious or inflammatory in etiology. Follow-up chest CT in 3- 6 months is recommended to document resolution. D/ / Michele García MD / Michele García MD Interpreting Provider: Michele García MD Head CT 12/16/16 07:36 IMPRESSION: 1. No acute intracranial abnormality. 2. Scattered foci of subcortical white matter hypoattenuation are favored to represent chronic small vessel ischemic white matter disease. These could be further assessed with a follow-up brain MRI, if clinically indicated. D/ / 12/16/2016 10:37:31 Michele Colon MD / [facility] Interpreting Provider: Michele Colon MD - Time Spent with Patient Total time spent providing and/or coordinating discharge services: - Constitutional Vitals: Temp Pulse Resp BP Pulse Ox 98.1 F 67 15 130/76 95 12/18/16 11:14 12/18/16 11:14 12/18/16 11:14 12/18/16 11:14 12/18/16 11:14 General appearance: Present: cooperative, A&O X 3, pleasant, no acute distress, answers questions appropriately - Head Head exam: Present: atraumatic, normocephalic - Eye Eye exam: Present: PERRL, conjuntiva pink, sclera anicteric Pupils: Present: PERRL - Neck Neck exam general surgery: Present: supple, trachea midline. Absent: lymphadenopathy - Respiratory Respiratory exam: Present: decreased breath sounds. Absent: accessory muscle use, rales, respiratory distress, rhonchi, wheezes - Cardiovascular Cardiovascular exam: Present: RRR, +S1, +S2. Absent: diastolic murmur, gallop, rubs, systolic murmur - GI/Abdominal GI/Abdominal exam: Present: normal bowel sounds, soft, no peritoneal signs. Absent: distended, tenderness - Extremities Exam Extremities exam: Present: warm, radial pulses palpable and symmetrical. Absent : calf tenderness, cyanotic, pedal edema - Neurological Exam Neurological exam: Present: alert, CN II-XII intact, normal gait, oriented X3, no focal deficits, strengths equal and symetr throughout. Absent: pronater drift, facial droop, speech deficit - Skin Skin exam: Present: dry, intact, pallor, warm
== END 2016-12-18 14:45 | disposition home or self-care (01) | DRG 194 ==
LOC: 3BNU 07:31 → EMEROO 07:31 → 3BNU 13:09
PROVIDERS: ADMIT Internal Medicine; ATTEND Nurse Practitioner Family